=== PATIENT | female | born 1965 | race Caucasian/White ===

== ENCOUNTER 2021-12-31 14:24 | Outpatient (CLI) | payer OTHER, SELFPAY ==
[2021-12-31 21:49] LABS: Chloride* 97 mmol/L (96-114); Sodium* 136 mmol/L (135-149)
[2021-12-31 21:52] LABS: Carbon Dioxide* 28 mmol/L (20-32); Cholesterol* 198 mg/dL (90-199); Estimated Glomerular Filt Rate 65 ml/min
[2021-12-31 21:54] LABS: Alanine Aminotransferase* 21 U/L (4-35); Alkaline Phosphatase* 115 U/L (40-150); Aspartate Amino Transferase* 27 U/L (12-35); Bilirubin Total* 0.7 mg/dL (0.1-1.5); Blood Urea Nitrogen* 13 mg/dL (7-30); Calcium* 10.3 mg/dL (8.4-10.6); Glucose* 103 mg/dL (60-115); HDL Cholesterol* 72 mg/dL (>=50); LDL Cholesterol Calculated 106 mg/dL (<100); Total Protein* 8.3 g/dL (6.0-8.3); Triglycerides* 102 mg/dL (40-149)
== END 2021-12-31 14:25 | disposition home or self-care (01) ==
LOC: LKVREF 14:27
PROVIDERS: PCP Emergency Medicine; Visit Provider Emergency Medicine
DX: F10.21 Alcohol dependence, in remission (principal); E78.5 Hyperlipidemia, unspecified; F32.9 Major depressive disorder, single episode, unspecified
CPT/HCPCS: 80053; 80061

== ENCOUNTER 2022-01-27 13:41 | Outpatient (CLI) | payer OTHER, SELFPAY ==
--- NOTE | 2022-01-27 14:00 | CRLHL7_ITS ---
For Patients: As a result of the Century Cures Act, medical imaging exams and procedure reports are released immediately into your electronic medical record. You may view this report before your referring provider. If you have questions, please contact your health care provider. INDICATION: L parotid nodule COMPARISON: none TECHNIQUE: A CT volumetric acquisition was performed of the neck during intravenous infusion of 81 cc Isovue 370 nonionic intravenous contrast. Please note that all CT scans at this facility use dose modulation, iterative reconstruction, and/or weight-based dosing when appropriate to reduce radiation dose to as low as reasonably achievable. FINDINGS: The CT images demonstrate normal aeration of the mastoid air cells and middle ear cavities. Incidental left maxillary periapical cyst measuring 1.2 cm with mild adjacent mucosal thickening involving the left maxillary sinus. Remaining sinuses clear. S-shaped curvature of the nasal septum. No nasal polyps. The parotid and submandibular glands are of normal size and have uniform enhancement. The oropharynx appears normal. The valleculae, epiglottis, aryepiglottic folds and piriform sinuses appear normal. Degenerative disc disease cervical spine. Lung apices clear. There is a normal appearance of the larynx and subglottic trachea. The thyroid gland is of normal size and has uniform density. There is no evidence of lymphadenopathy within the anterior and posterior cervical triangles or within the supraclavicular region. IMPRESSION: There is no parotid gland mass. No cervical adenopathy. Please note that all CT scans at this facility use dose modulation, iterative reconstruction, and/or weight-based dosing when appropriate to reduce radiation dose to as low as reasonably achievable. Dictated by Terry Vick MD @ 01/27/2022 2:53:18 PM (Electronically Signed)
== END 2022-01-27 13:42 | disposition home or self-care (01) ==
LOC: CT 13:42
PROVIDERS: PCP Emergency Medicine; Visit Provider Emergency Medicine
DX: K11.8 Other diseases of salivary glands (principal)
CPT/HCPCS: 70491; Q9967

== ENCOUNTER 2023-01-29 22:08 | Outpatient (REF) | payer OTHER, SELFPAY ==
[2023-01-29 22:47] LABS: Iron* 77 ug/dL (37-170)
[2023-01-29 23:06] LABS: C Reactive Protein* < 0.5 mg/dL (0.5-1.0); Vitamin D 25 Hydroxy* 58 ng/mL (30-80)
[2023-01-29 23:22] LABS: Basophils Percent Auto 0.7 % (0.0-3.0); Eosinophils Percent Auto 2.2 % (0.0-7.0); Hematocrit 38.5 % (33.0-51.0); Hemoglobin* 12.6 gm/dL (12.0-16.0); Lymphocytes Percent Auto 24.9 % (20-44); Mean Corpuscular HGB Conc 33 gm/dL (32-36); Mean Corpuscular Hemoglobin 28 pg (26-34); Mean Corpuscular Volume 87 fL (80-100); Monocytes Percent Auto 9.5 % (0.0-11.0); Neutrophils Percent Auto 62.7 % (42.0-72.0); Platelet Count* 368 K/uL (140-440); RDW Coefficient of Variation % 12.6 % (11.5-15.5); Red Blood Count 4.45 m/uL (4.00-5.20); White Blood Count* 4.02 K/uL (4.50-11.00)
[2023-01-29 23:25] LABS: Slide Review Reflex No
[2023-01-29 23:38] LABS: Vitamin B12* 909 pg/mL (243-894)
[2023-01-31 09:00] LABS: Folate, Serum >22.3 ng/mL (>=5.9)
== END 2023-01-29 22:09 | disposition home or self-care (01) ==
LOC: NPINS 22:08
PROVIDERS: PCP Emergency Medicine
DX: Z00.00 Encounter for general adult medical examination without abnormal findings (principal); Z79.899 Other long term (current) drug therapy; Z13.21 Encounter for screening for nutritional disorder; Z13.29 Encounter for screening for other suspected endocrine disorder
CPT/HCPCS: 82306; 82607; 82746; 83540; 84443; 85025; 86140

== ENCOUNTER 2023-03-24 08:28 | Outpatient (CLI) | payer OTHER, SELFPAY | END 2023-03-24 08:29 | disposition home or self-care (01) | LOC: NFLDREF 03-30 11:34 | PROVIDERS: PCP Emergency Medicine; Referring Provider Emergency Medicine; Visit Provider Emergency Medicine | DX: E78.5 Hyperlipidemia, unspecified (principal) | CPT/HCPCS: 80053; 80061 ==

== ENCOUNTER 2023-04-15 14:47 | Outpatient (CLI) | payer OTHER, SELFPAY | END 2023-04-15 14:48 | disposition home or self-care (01) | PROVIDERS: PCP Emergency Medicine; Visit Provider Emergency Medicine | DX: L65.9 Nonscarring hair loss, unspecified (principal) | CPT/HCPCS: 82728; 84443 ==

== ENCOUNTER 2023-11-23 16:15 | Outpatient (CLI) | payer OTHER, SELFPAY | END 2023-11-23 16:16 | disposition home or self-care (01) | LOC: NFLDREF 11-26 16:51 | PROVIDERS: PCP Emergency Medicine; Referring Provider Emergency Medicine; Visit Provider Nurse Practitioner Family | DX: N89.8 Other specified noninflammatory disorders of vagina (principal); N76.0 Acute vaginitis; Z11.3 Encounter for screening for infections with a predominantly sexual mode of transmission | CPT/HCPCS: 87086; 87491; 87591 ==

== ENCOUNTER 2024-04-04 10:58 | Outpatient (CLI) | payer OTHER, SELFPAY ==
[2024-04-04 13:57] LABS: Lab Add On Test ADDED
== END 2024-04-04 10:59 | disposition home or self-care (01) ==
PROVIDERS: PCP Emergency Medicine; Visit Provider Emergency Medicine
DX: E61.1 Iron deficiency (principal); D72.819 Decreased white blood cell count, unspecified; E78.2 Mixed hyperlipidemia; R73.03 Prediabetes; I10 Essential (primary) hypertension
CPT/HCPCS: 80048; 80061; 82728

== ENCOUNTER 2024-12-21 11:00 | Outpatient (CLI) | payer OTHER, SELFPAY | END 2024-12-21 11:01 | disposition home or self-care (01) | LOC: NFLDREF 12-26 15:35 | PROVIDERS: PCP Emergency Medicine; Referring Provider Emergency Medicine; Visit Provider Family Medicine | DX: I10 Essential (primary) hypertension (principal); E61.1 Iron deficiency; K21.9 Gastro-esophageal reflux disease without esophagitis; E78.5 Hyperlipidemia, unspecified; F41.8 Other specified anxiety disorders; K58.9 Irritable bowel syndrome, unspecified; E78.2 Mixed hyperlipidemia; F10.21 Alcohol dependence, in remission; Z13.6 Encounter for screening for cardiovascular disorders; Z13.1 Encounter for screening for diabetes mellitus; Z13.29 Encounter for screening for other suspected endocrine disorder; Z79.899 Other long term (current) drug therapy; F34.0 Cyclothymic disorder; F41.1 Generalized anxiety disorder; F33.9 Major depressive disorder, recurrent, unspecified; Z13.21 Encounter for screening for nutritional disorder; Z13.0 Encounter for screening for diseases of the blood and blood-forming organs and certain disorders involving the immune mechanism; Z13.228 Encounter for screening for other metabolic disorders | CPT/HCPCS: 80053; 80061; 83540; 83550 ==

== ENCOUNTER 2024-12-21 13:31 | Outpatient (CLI) | payer OTHER, SELFPAY ==
[2024-12-21 22:14] LABS: Free T4 Free Thyroxine* 0.95 ng/dL (0.70-1.85)
[2024-12-21 22:39] LABS: Vitamin B12* 896 pg/mL (243-894)
[2024-12-23 01:10] LABS: Folate, Serum >22.3 ng/mL (>=5.9)
[2024-12-23 06:29] LABS: Zinc, Serum/Plasma 72.8 ug/dL (60.0-120.0)
[2024-12-23 08:48] LABS: Vitamin D, 1,25-Dihydroxy 46.3 pg/mL (19.9-79.3)
[2024-12-23 10:35] LABS: Free T3 4.0 pg/mL (2.5-4.3)
== END 2024-12-21 13:32 | disposition home or self-care (01) ==
LOC: NPINS 13:33
PROVIDERS: PCP Family Medicine; Visit Provider Psychiatry & Neurology Psychiatry
DX: F34.0 Cyclothymic disorder (principal); F41.1 Generalized anxiety disorder; F33.9 Major depressive disorder, recurrent, unspecified; Z13.29 Encounter for screening for other suspected endocrine disorder; Z13.0 Encounter for screening for diseases of the blood and blood-forming organs and certain disorders involving the immune mechanism; Z13.21 Encounter for screening for nutritional disorder; Z13.228 Encounter for screening for other metabolic disorders; Z79.899 Other long term (current) drug therapy
CPT/HCPCS: 80175; 82607; 82652; 82728; 82746; 83735; 84439; 84443; 84481; 84630; 85025

== ENCOUNTER 2025-01-03 10:56 | Outpatient (CLI) | payer OTHER, SELFPAY ==
--- NOTE | 2025-01-03 11:15 | CRLHL7_ITS ---
For Patients: As a result of the Century Cures Act, medical imaging exams and procedure reports are released immediately into your electronic medical record. You may view this report before your referring provider. If you have questions, please contact your health care provider. INDICATION: abnormal levels of other serum enzymes COMPARISON: none TECHNIQUE: Real time [place] scale imaging and color Doppler analysis was performed of the right upper quadrant. FINDINGS: Liver echotexture is mildly coarsened. There is a benign cyst within the liver which measures 1.7 x 1.6 x 1.4 cm. Thin internal septations noted. There is a normal appearance of the hepatic IVC and proximal abdominal aorta. There is no evidence of ascites. The gallbladder is of normal size and there is no evidence of intraluminal stones or sludge. The gallbladder wall measures 2 mm in thickness. The common bile duct is of normal size and measures 4 mm in diameter at the level of the halima hepatis. The pancreas is obstructed by overlying bowel gas. There is no evidence of a stone or hydronephrosis within the right kidney. The right kidney measures 10.0 cm in length. IMPRESSION: Mild hepatic steatosis. Incidental benign cyst in the liver measuring 1.7 cm. Normal gallbladder. Dictated by Terry Vick MD @ 01/03/2025 11:35:40 AM (Electronically Signed)
== END 2025-01-03 10:57 | disposition home or self-care (01) ==
LOC: US 10:57
PROVIDERS: PCP Family Medicine; Visit Provider Family Medicine
DX: R74.8 Abnormal levels of other serum enzymes (principal); K76.0 Fatty (change of) liver, not elsewhere classified; K76.89 Other specified diseases of liver
CPT/HCPCS: 76705